=== PATIENT | male | born 1950 | race Caucasian/White ===

== ENCOUNTER → 2024-12-22 07:11 | Outpatient (REF) | payer OTHER, SELFPAY | LOC: RCS 07:11 | PROVIDERS: ATTENDING PHYSICIAN Internal Medicine Cardiovascular Disease; FAMILY PHYSICIAN Hospitalist | DX: I63.89 Other cerebral infarction (principal) | CPT/HCPCS: 78452; 93017; A9500; J2785 ==

== ENCOUNTER → 2025-02-23 08:12 | Outpatient (REF) | payer OTHER, SELFPAY | LOC: HWRCS 08:12 | PROVIDERS: ATTENDING PHYSICIAN Internal Medicine Cardiovascular Disease; FAMILY PHYSICIAN Hospitalist | DX: I10 Essential (primary) hypertension (principal); I63.89 Other cerebral infarction; I25.10 Atherosclerotic heart disease of native coronary artery without angina pectoris | CPT/HCPCS: 93306 ==

== ENCOUNTER 2025-06-02 07:28 | Day surgery (SDC) | payer OTHER, SELFPAY ==
[2025-06-02] VITALS (12 sets, daily range): BP systolic 127–177; BP diastolic 68–98; BMI 36.2
[2025-06-02 08:11] LABS: Hematocrit 41.1 % (39.0-52.0); Hemoglobin 13.7 g/dL (13.0-18.0); Mean Corp Hgb Conc. 33.3 g/dL (33.0-37.0); Mean Corpuscular Volume 88.2 fL (80.0-94.0); Platelet Count 190 10^3/uL (130-400); Red Cell Dist. Width 13.6 % (11.5-14.5)
[2025-06-02 08:21] LABS: APTT 30.4 Sec (23.4-35.0); INR 1.06; PT 13.9 Sec (11.4-14.6)
[2025-06-02] MEDS: LOW STRENGTH ASPIRIN 81 MG PO (08:33)
[2025-06-02] MEDS: PLAVIX 75 MG PO (08:33)
[2025-06-02 08:37] LABS: Blood Urea Nitrogen 15 mg/dl (9-20); Calcium 8.6 mg/dl (8.4-10.2); Carbon Dioxide 29 mmol/L (22-30); Chloride 105 mmol/L (98-107); Estimated Creatinine Clearance 76 ml/min; Glucose 106 mg/dl (70-99); Potassium 4.5 mmol/L (3.5-5.1); Sodium 139 mmol/L (135-145); eGFR > 60.00
[2025-06-02 11:00] LABS: ACT-LR - POC 274 Seconds (116-155)
[2025-06-02] MEDS: NSS 1000 IV (11:30)
--- NOTE | 2025-06-02 12:34 | ITS.CL.CATH ---
Quality Control Lead - Catheterization
Cardiac Catheterization
Procedure Report:
RIGHT AND LEFT HEART STUDY
Date of Procedure: June 02, 2025
Referring: Dr. Dino Mcdowell
PROCEDURES:
1. Right heart catheterization
2. Left heart catheterization with coronary and single-plane left ventriculography
3. Hemodynamic assessment of RCA with [place] Omni wire. The iFR serially measured above the ischemic threshold
INDICATION: This is a 75-year-old gentleman with a past medical history notable for multiple coronary artery stents beginning in the late . We do not have complete records of prior coronary interventions, however, the mid LAD has experienced
issues with recurring in-stent restenosis and required several interventional procedures with balloon angioplasty of a restenotic lesion within the stented segment in 2016 and restenting of the LAD in 2018. We do not have details of coronary
interventions before 2016 or after 2018. 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
His most recent echocardiogram is notable for preserved LV systolic function and a thickened calcified aortic valve with a mean gradient of 14 mmHg. The estimated aortic valve area was 1.3 cm� when using the continuity equation. There was trace
mitral regurgitation and trace tricuspid regurgitation.
He was recently evaluated by Dr. Mcdowell and reported 'symptoms very similar to his prior' anginal symptoms when in need of stents.
ACCESS: Right radial artery, 6 [place] sheath in right brachial vein, 5 [place] sheath using ultrasound guided
HEMODYNAMICS : mmHg
RA (m) : 7
RV (s/d) : 26/7, 10
PA (s/d, m) : 28/14, 19
PCWP (m) : 12
AO (s/d, m) : 142/56, 89
LV (s/d) : 156/11
LVEDP : 22
Estimated [place]oon Cardiac Output: 7.3 L / min and Cardiac Index: 3.3 L/ min / m-2
Systemic vascular resistance: 11.2 Wood units or 899 [id number](-5)
Pulmonary vascular resistance: 0.8 Wood units or 66 [id number](-5)
AORTIC VALVE :
Mean Gradient: 18 mmHg
Aortic Valve Area: 2.55 cm2
CORONARY FINDINGS :
Dominance: Right
LEFT MAIN: Normal
LEFT ANTERIOR DESCENDING: Multiple overlapping stents are noted from the proximal to mid LAD spanning the origins of several small diagonal branches. There is diffuse proximal to mid in-stent restenosis. The LAD beyond the stented segment is a
medium caliber vessel that tapers as it approaches the apex.
CIRCUMFLEX: The circumflex gives rise to a small caliber OM1 that arises very proximally and runs in a distribution typical for a ramus intermedius. OM1 is a small caliber vessel with a 50-60% mid stenosis. OM 2
RIGHT CORONARY ARTERY: The right coronary artery is a dominant vessel with a 30% proximal stenosis. Luminal irregularities are noted. The distal RCA/proximal PDA has 30-40% proximal stenosis. The iFR in the distal vessel measured above the
ischemic threshold at 0.92, 0.93, 0.93
VENTRICULOGRAPHY: Left ventriculography is performed in an TAYLOR projection. The digital single-plane left ventricular ejection fraction is visually estimated at 65% and no regional wall motion abnormalities are noted.
SEDATION: 67 minutes of procedural sedation was utilized. An independent clinical medical assistant was present to assist with and help manage the patient's level of consciousness and physiologic status
RADIATION SUMMARY: Fluoro Time (min): 10.4, Dose (mGy): 804, DAP (Gy.cm2) : 55.2
CONCLUSIONS
1. Recurring in-stent restenosis within the overlapping LAD stents
2. iFR in the RCA measured above the ischemic threshold
3. Mild aortic stenosis
RECOMMENDATIONS
1. Will consult CT surgery to consider MIDCAB bypass of the multiple overlapping stents vs median sternotomy and possible AVR (mild / mild-mod aortic stenosis)
Copy to: Dr. Dino Mcdowell
== END 2025-06-02 14:15 | disposition home or self-care (01) ==
LOC: CATH 07:28
PROVIDERS: ATTENDING PHYSICIAN Internal Medicine Interventional Cardiology; FAMILY PHYSICIAN Hospitalist; OTHER PHYSICIAN Internal Medicine Cardiovascular Disease
DX: I25.119 Atherosclerotic heart disease of native coronary artery with unspecified angina pectoris (principal); I35.0 Nonrheumatic aortic (valve) stenosis; I35.8 Other nonrheumatic aortic valve disorders; T82.855D Stenosis of coronary artery stent, subsequent encounter; Y83.8 Other surgical procedures as the cause of abnormal reaction of the patient, or of later complication, without mention of misadventure at the time of the procedure; Z79.82 Long term (current) use of aspirin; Z79.899 Other long term (current) drug therapy; Z79.02 Long term (current) use of antithrombotics/antiplatelets; Z79.4 Long term (current) use of insulin; Z79.84 Long term (current) use of oral hypoglycemic drugs; E11.9 Type 2 diabetes mellitus without complications; I10 Essential (primary) hypertension; Z86.73 Personal history of transient ischemic attack (TIA), and cerebral infarction without residual deficits
CPT/HCPCS: 99152; 99153; 93799; 80048; 85027; 85347; 85610; 85730; 93460; C1769; C1894; Q9967

== ENCOUNTER → 2025-06-18 12:46 | Outpatient (REF) | payer OTHER, SELFPAY | LOC: HWRAD 12:46 | PROVIDERS: ATTENDING PHYSICIAN Thoracic Surgery (Cardiothoracic Vascular Surgery); FAMILY PHYSICIAN Hospitalist | DX: I25.10 Atherosclerotic heart disease of native coronary artery without angina pectoris (principal); Z01.810 Encounter for preprocedural cardiovascular examination | CPT/HCPCS: 71250 ==